=== PATIENT | female | born 1985 | race Caucasian/White ===

== ENCOUNTER 2023-11-01 11:25 | Inpatient (IN) | payer OTHER ==
[2023-11-01 11:59] VITALS: BMI 20.6
[2023-11-01] MEDS ORDERED: POLYETHYLENE GLYCOL (HEALTHYLAX) 3350 17 GM PACKET PO PRN (12:37)
[2023-11-01] MEDS ORDERED: LOPERAMIDE HCL 2 MG CAPSULE PO PRN (12:37)
[2023-11-01] MEDS ORDERED: NALOXONE HCL 0.4 MG/ML VIAL IM PRN (12:37)
[2023-11-01] MEDS ORDERED: NALOXONE HCL (KLOXXADO) 8 MG SPRAY NS PRN (12:37)
[2023-11-01] MEDS ORDERED: BISMUTH SUBSALICYLATE 262 MG/15 ML BTL PO PRN (12:37)
[2023-11-01] MEDS ORDERED: guaiFENesin 600 MG TABLET.ER (FP) PO PRN (12:37)
[2023-11-01] MEDS ORDERED: IBUPROFEN 600 MG TABLET (FP) PO PRN (12:37)
[2023-11-01] MEDS ORDERED: MAG HYDROX/AL HYDROX/SIMETH 30 ML UNIT-DOSE CUP PO PRN (12:37)
[2023-11-01] MEDS ORDERED: BENZONATATE 200 MG CAPSULE PO PRN (12:37)
[2023-11-01] MEDS ORDERED: ACETAMINOPHEN 325 MG TABLET (FP) PO PRN (12:37)
[2023-11-01] MEDS ORDERED: LORazepam 1 MG TABLET PO PRN (12:37)
[2023-11-01] MEDS ORDERED: IBUPROFEN 400 MG TABLET (FP) PO PRN (12:37)
[2023-11-01] MEDS ORDERED: BENZOCAINE/MENTHOL (CHLORASEPTIC ) LOZENGE MM PRN (12:37)
[2023-11-01] MEDS ORDERED: DICYCLOMINE HCL 10 MG CAPSULE PO PRN (12:37)
[2023-11-01] MEDS ORDERED: TRIMETHOBENZAMIDE HCL 200MG/2ML INJ IM ONE ×2 (12:58→13:08)
[2023-11-01] MEDS: PRENATAL VITAMINS W/ FOLIC ACID TABLET (FP) PO SCH (13:09)
[2023-11-01] MEDS ORDERED: methaDONE HCL 10 MG TABLET (FOR DETOX USE ONLY) PO ONE (13:42)
[2023-11-01] MEDS ORDERED: methaDONE HCL 10 MG TABLET PO ONE (14:15)
[2023-11-01] MEDS: LORazepam 2 MG TABLET PO SCH ×2 (17:05→22:12)
[2023-11-01] MEDS: GABAPENTIN 400 MG CAPSULE PO SCH (17:06)
[2023-11-01] MEDS ORDERED: MELATONIN 5 MG TABLETS PO SCH (22:00)
[2023-11-01] MEDS: THIAMINE HCL 100 MG TABLET (FP) PO SCH (22:12)
[2023-11-02] MEDS: METHOCARBAMOL 500 MG TABLET PO PRN ×2 (03:20→17:15)
[2023-11-02] MEDS: hydrOXYzine PAMOATE 25 MG CAPSULE (FP) PO PRN ×2 (03:20→17:12)
[2023-11-02] MEDS: LORazepam 2 MG TABLET PO SCH ×4 (05:12→22:26)
[2023-11-02] MEDS: GABAPENTIN 400 MG CAPSULE PO SCH ×2 (06:44→11:25)
[2023-11-02] MEDS: PRENATAL VITAMINS W/ FOLIC ACID TABLET (FP) PO SCH (09:03)
[2023-11-02] MEDS ORDERED: methaDONE HCL 40 MG DISPERSABLE TABLET PO ONE (10:00)
[2023-11-02 11:05] LABS: HEMATOCRIT 36.5 % (32.4-45.2); HEMOGLOBIN 11.8 GM/dL (10.7-15.3); MCH 28.1 pg (25.7-33.7); MCHC 32.3 g/dl (32.0-36.0); MEAN PLT VOLUME 9.5 fl (7.5-11.1); PLATELET COUNT 228 10^3/uL (134-434); RBC 4.19 M/mm3 (3.60-5.2); RDW 19.9 % (11.6-15.6); WHITE BLOOD COUNT 8.8 K/mm3 (4.0-10.0)
[2023-11-02 12:29] LABS: POTASSIUM 4.1 mmol/L (3.5-5.1)
[2023-11-02 12:31] LABS: CALCIUM 8.8 mg/dL (8.5-10.1)
[2023-11-02 12:32] LABS: ALBUMIN 3.5 g/dl (3.4-5.0); BLOOD UREA NITROGEN 8.5 mg/dL (7-18)
[2023-11-02 12:35] LABS: CREATININE 0.7 mg/dL (0.55-1.3)
[2023-11-02 12:37] LABS: BILIRUBIN,TOTAL 0.8 mg/dL (0.2-1); TOT PROT 7.2 g/dl (6.4-8.2)
[2023-11-02] MEDS: ONDANSETRON *ODT* 4 MG TABLET SL PRN (17:13)
[2023-11-02] MEDS: THIAMINE HCL 100 MG TABLET (FP) PO SCH (22:25)
[2023-11-02] MEDS: traZODone HCL 100 MG TABLET (FP) PO SCH (22:26)
[2023-11-03] MEDS: LORazepam 1 MG TABLET PO SCH ×4 (05:11→22:47)
[2023-11-03] MEDS: GABAPENTIN 400 MG CAPSULE PO SCH ×2 (07:01→11:11)
[2023-11-03] MEDS: PRENATAL VITAMINS W/ FOLIC ACID TABLET (FP) PO SCH (09:45)
[2023-11-03] MEDS ORDERED: methaDONE HCL 10 MG TABLET PO ONE (10:00)
[2023-11-03] MEDS ORDERED: methaDONE 40 MG, methaDONE 10 MG PO ONE (10:00)
[2023-11-03] MEDS: THIAMINE HCL 100 MG TABLET (FP) PO SCH (22:47)
[2023-11-03] MEDS: traZODone HCL 100 MG TABLET (FP) PO SCH (22:47)
[2023-11-03] MEDS: METHOCARBAMOL 500 MG TABLET PO PRN (22:47)
[2023-11-04] MEDS ORDERED: LORazepam 0.5 MG TABLET PO PRN
[2023-11-04] MEDS: LORazepam 0.5 MG TABLET PO SCH ×4 (05:25→22:32)
[2023-11-04] MEDS: GABAPENTIN 400 MG CAPSULE PO SCH ×2 (06:44→12:31)
[2023-11-04] MEDS: ONDANSETRON *ODT* 4 MG TABLET SL PRN (07:07)
[2023-11-04] MEDS: METHOCARBAMOL 500 MG TABLET PO PRN ×2 (09:11→22:32)
[2023-11-04] MEDS: PRENATAL VITAMINS W/ FOLIC ACID TABLET (FP) PO SCH (09:12)
[2023-11-04] MEDS ORDERED: methaDONE 40 MG, methaDONE 20 MG PO ONE (10:00)
[2023-11-04] MEDS ORDERED: methaDONE HCL 10 MG TABLET PO ONE (10:00)
[2023-11-04 18:36] VITALS: RESP 16
[2023-11-04] MEDS: traZODone HCL 100 MG TABLET (FP) PO SCH (22:31)
[2023-11-04] MEDS: THIAMINE HCL 100 MG TABLET (FP) PO SCH (22:31)
[2023-11-05] MEDS ORDERED: LORazepam 0.5 MG TABLET PO ONE ×2 (02:38→05:00)
[2023-11-05] MEDS: GABAPENTIN 400 MG CAPSULE PO SCH ×2 (06:08→11:17)
[2023-11-05] MEDS: MAGNESIUM HYDROX 2400MG/30ML ORAL SUSPENSION 30 ML CUP PO PRN ×2 (08:09→10:09)
[2023-11-05] MEDS: METHOCARBAMOL 500 MG TABLET PO PRN (08:09)
[2023-11-05] MEDS ORDERED: methaDONE HCL 10 MG TABLET PO ONE (10:00)
[2023-11-05] MEDS ORDERED: methaDONE 40 MG, methaDONE 30 MG PO ONE (10:00)
[2023-11-05] MEDS: PRENATAL VITAMINS W/ FOLIC ACID TABLET (FP) PO SCH (10:09)
[2023-11-05 10:20] VITALS: BP 134/93; TEMP 97.3
[2023-11-05 10:26] VITALS: PULSE 90
== END 2023-11-05 10:35 | disposition home or self-care (01) | DRG 773 ==
LOC: YASAS 11:25 → EDSEX 11:25 → Y6N 13:09
PROVIDERS: ADMIT Allergy & Immunology; ATTEND Family Medicine
PROC: HZ2ZZZZ Detoxification Services for Substance Abuse Treatment (ICD-10-PCS; principal; 2023-11-01)
DX: F10.230 Alcohol dependence with withdrawal, uncomplicated (principal); F11.20 Opioid dependence, uncomplicated; F19.280 Other psychoactive substance dependence with psychoactive substance-induced anxiety disorder; F19.24 Other psychoactive substance dependence with psychoactive substance-induced mood disorder; F32.A Depression, unspecified; K90.0 Celiac disease; M79.2 Neuralgia and neuritis, unspecified; M25.511 Pain in right shoulder; R74.8 Abnormal levels of other serum enzymes
CPT/HCPCS: 36415; 80053; 80307; 84450; 85027; 86780; 87635; 87811; Q0162